=== PATIENT | male | born 1990 | race Caucasian/White ===

== ENCOUNTER 2021-01-02 09:53 | Emergency (ER) | payer OTHER, SELFPAY ==
--- NOTE | 2021-01-02 10:18 | HMH.EDGENADL ---
ED Disposition Clinical Impression: Right knee pain Qualifiers: Chronicity: acute Qualified Code(s): M25.561 - Pain in right knee Disposition: Home, Self-Care Condition on Discharge: Good Instructions: DI for Knee Pain Additional Instructions: Knee immobilizer as needed. Ibuprofen or naproxen as needed for pain. Follow-up with orthopedics, at the [place] or Dr. Castro, call for appointment. Referrals: Provider,MD Basim [Primary Care Provider] - Raleigh Castro MD [Staff Physician] - - Critical Care Critical Care Time: No Attestation: On 01/02/21, the high probability of a clinically significant, sudden or life threatening deterioration of the following system(s) required my full and direct attention, intervention and personal management. The time I documented below is in addition to time spent performing reported procedures but includes the following listed in this critical care notation. Medical Decision Making - Andres Inquiry Pt receiving controlled substance: No Vital Signs: 01/02/21 10:19 Temperature 98.1 F Temperature Source Oral Pulse Rate [Right] 87 Respiratory Rate 19 Blood Pressure [Right Arm] 128/80 Blood Pressure Mean [Right Arm] 96 02 Sat by Pulse Oximetry 98 Oxygen Delivery Method Room Air Orders (Tests/Meds): ORDERS Category Date Time Status Knee XR right 3 views [XR knee RT 3V] Stat Exams 01/02/21 10:26 Taken - Radiology Data #1 Image(s): Knee Image Reviewed: Yes I reviewed the patient's radiology image Preliminary Findings: Normal/NAD Medical Decision Narrative: Suspect medial meniscus injury. General Adult HPI - General Stated complaint: right knee pain Time Seen by Provider: 01/02/21 10:18 - History of Present Illness HPI narrative: Complains of right knee pain which started 4 weeks ago. No injury. No prior knee problems of significance. The pain is medial and patellar area. Pain increases with extension of his knee, external rotation of his foot, going up steps. Pain is relieved by flexing knee to 90 degrees. - Related Data Allergies Allergy/AdvReac Type Severity Reaction Status Date / Time No Known Allergies Allergy Verified 01/02/21 10:25 [facility] History - Hepatitis A Screen Attestation statement:: This patient has been screened for Hepatitis A risk factors. I have reviewed the patient's past medical history: Yes ROS Obtained: Yes Systems reviewed as appropriate & no additional complaints - Constitutional Constitutional: Denies fever(s) - Musculoskeletal Musculoskeletal: Reports joint pain (Right knee) Physical Exam - General General appearance: alert, in no apparent distress - Respiratory Respiratory exam: Absent: respiratory distress - Cardiovascular Cardiovascular exam: Present: regular rate - Extremities Exam Extremities exam: Present: normal inspection, full ROM - Expanded Lower Extremity Exam Right Knee exam: Present: normal inspection, tenderness, pain with varus, knee extension intact. Absent: swelling, deformity, crepitus, dislocation, erythema, effusion, anterior drawer sign, posterior draw sign, pain with valgus, laxity with valgus, laxity with varus Neurovascular/Tendon exam: Absent: pulse deficit, motor deficit, sensory deficit, tendon deficit - Neurological Exam Neurological exam: Present: alert, oriented X3. Absent: motor sensory deficit - Psychiatric Psychiatric exam: Present: normal affect, normal mood
[2021-01-02 10:19] VITALS: BP 128/80; PULSE 87; RESP 19; TEMP 36.7; O2SAT 98; BMI 35.9
--- NOTE | 2021-01-02 10:26 | XR_ITS ---
CLINICAL INDICATION: KNEE PAIN COMPARISON: No exams were available for comparison TECHNIQUE: FINDINGS: The bony structures are intact, well-aligned, and normally mineralized. The joint spaces are preserved. No soft tissue calcifications are noted. No suprapatellar joint effusion. Incidental note is made of fabella. IMPRESSION: No evidence of fracture or other significant radiographic abnormality. Dictated by: Meseret Castro 01/02/2021 11:22 Meseret Castro in [place] 01/02/2021 11:22
[2021-01-02 10:35] VITALS: BP 126/79; PULSE 90; RESP 20; O2SAT 95
--- NOTE | 2021-01-02 10:54 | PC.NURSE ---
MD @ bedside updating patient on Rad results and plan of care.
[2021-01-02 11:00] VITALS: BP 133/77; PULSE 81; RESP 18; TEMP 36.7; O2SAT 99
== END 2021-01-02 11:23 | disposition home or self-care (01) ==
LOC: UTC 10:05 → ER 10:07
PROVIDERS: Emergency Provider Emergency Medicine
DX: M25.561 Pain in right knee (principal)
CPT/HCPCS: 73562; 99282

== ENCOUNTER 2025-07-13 13:35 | Outpatient (CLI) | payer OTHER, SELFPAY ==
--- NOTE | 2025-07-13 13:37 | MR_ITS ---
FINAL REPORT CLINICAL HISTORY: RT KNEE PAIN. PAIN AROUND PATELLA. PAIN WORSE GOING UP AND DOWN STEPS. NO INJURY OR TRAUMA. COMPARISON: None FINDINGS: Multi planar MR imaging was performed of the right knee. The anterior and posterior cruciate ligaments are intact. The quadriceps and patellar tendons are intact. The medial and lateral menisci are intact without evidence of tear. The medial and lateral collateral ligaments appear intact. The medial and lateral retinacula appear intact. There is moderate narrowing of the patellofemoral joint. There are osteochondral lesions involving the lateral articular surface of the patella with associated bone marrow edema and grade I-II chondromalacia of the patella. No evidence of soft tissue inflammatory reaction. 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 There are osteochondral lesions involving the lateral articular facet with associated bone marrow edema. Reviewed, Interpreted and Dictated by Mark Rudd MD Transcribed by Gloria Mcclain Authenticated and . [facility]
--- OUTSIDE RECORDS SUMMARY | 2025-07-13 14:47 | XMS_ITS | Clinical Summary ---
Author Organization [facility] Address [address] [place] [address] Care Team Providers Care Manager Customer Service Name Role Phone Unavailable Primary Care Provider Unavailabl e Source Comments [facility] is fully rolled out with thefollowing exceptions:General Clinical Research [facility] Social History Tobacco Use Types Packs/Day Years Used Date Smoking Tobacco: Never Assessed Sex and Gender Information Value Date Recorded Sex Assigned at Not on file Legal Sex Male 5:14 AM EST Gender Identity Not on file Sexual Orientation Not on file Plan of Treatment Health Maintenance Due Date Last Done Comments MMR IMMUNIZATION (1 of 1 - S tandard series) 1990 DTAP/Tdap/Td IMMUNIZATION (1 - Tdap) 1996 VARICELLA IMMUNIZATION (1 of 2 - 13+ 2-dose series) 2002 HEPATITIS B IMMUNIZATION (1 of 3 - 19+ 3-dose series) 2008 HPV IMMUNIZATION (1 - 3-dose SCDM series) 2016 AMB SEASONAL FLU VACCINE (#1) 04/25/2025 COVID-19 Vaccine ( - 2024-2 6 season) 2025 HIB IMMUNIZATION Aged Out No longer e ligible based on patient's age to complete this topic IPV IMMUNIZATION Aged Out No longer e ligible based on patient's age to complete this topic MCV4 IMMUNIZATION Aged Out No longer eligible based on patient's age to complete this topic MENINGOCOCCAL B VACCINE Aged Out No l onger eligible based on patient's age to complete this topic PNEUMOCOCCAL IMMUNIZATION Aged Out No longer eligible based on patient's age to complete this topic Respiratory Syncytial Virus (RSV) <20mo Aged Out No longer eligible b ased on patient's age to complete this topic
--- OUTSIDE RECORDS SUMMARY | 2025-07-13 14:47 | XMS_ITS | Clinical Summary ---
Author Organization [facility] Address [address] [place], [place] [address] Care Team Providers Care Security Operations Engineer Name Role Phone Samuel Smith MD Primary Care Provider Social History Tobacco Use Types Packs/Day Years Used Date Smoking Tobacco: Never Assessed Sex and Gender Information Value Date Recorded Sex Assigned at Not on file Legal Sex Male 4:10 PM EST Gender Identity Not on file Sexual Orientation Not on file Plan of Treatment Health Maintenance Due Date Last Done Comments Hepatitis B (HepB) Vaccine ( 1 of 3 - 19+ 3-dose series) 2008 Tdap/Td Vaccine >11 yo (1 - Tdap) 2008 HPV Vaccine (1 - 3-dose SCDM series) 2016 Annual SDOH Screening 08/25/2024 Influenza Vaccine (#1) 2025 Haemophilus Influenzae Type B (Hib) Vaccine Aged Out No longer eligible b ased on patient's age to complete this topic Hepatitis A (HepA) Vaccine Aged Out N o longer eligible based on patient's age to complete this topic Meningococcal ACWY Aged Out No longer eligible based on patient's age to complete this topic Pneumococcal Vaccines 6-49 yo Risk Aged Out No longer eligible based on patient's age to complete this topic Polio (IPV) Aged Out No longer eligi ble based on patient's age to complete this topic Rotavirus (RV) Vaccine Aged Out No lo nger eligible based on patient's age to complete this topic Care Teams Security Operations Engineer Relationship Specialty Start Date End Date Samuel Smith MD [address] [place] [address] PCP - General 01/06/04
== END 2025-07-13 23:59 | disposition home or self-care (01) ==
LOC: RAD 13:35
PROVIDERS: Visit Provider Family Medicine Addiction Medicine
DX: M22.41 Chondromalacia patellae, right knee (principal); M25.861 Other specified joint disorders, right knee; M93.861 Other specified osteochondropathies, right lower leg
CPT/HCPCS: 73721